=== PATIENT | female | born 1990 | race Caucasian/White ===

== ENCOUNTER 2017-10-18 15:47 | Emergency (ER) | payer OTHER ==
[~2017-10-18] VITALS: Ht 160 cm; Wt 100.0 kg
[~2017-10-18 15:47] MED LIST: ACET-1952 PO; CLIN300C9 PO; NAPR-58 PO
[2017-10-18] MEDS ORDERED: DEXAMETHASONE SOD PHOS 4 MG/ML 5 ML VIAL IM ONE (20:30)
[2017-10-18] MEDS ORDERED: HYPROMELLOSE 0.5% 15 ML OPHTHALMIC SOLUTION OD ONE (20:30)
[2017-10-18] MEDS ORDERED: AMOX TR/POT CLAV 875 MG/125 MG TABLET PO ONE (20:30)
[2017-10-18 20:44] VITALS: BP 115/80
== END 2017-10-18 20:53 | disposition home or self-care (01) ==
LOC: EMS 18:17
DX: R20.0 Anesthesia of skin (principal); J32.9 Chronic sinusitis, unspecified
CPT/HCPCS: 70450; 81025; 96372; 99284; J1100

== ENCOUNTER 2020-12-03 10:49 | Emergency (ER) | payer OTHER ==
[~2020-12-03] VITALS: Ht 160 cm; Wt 110.0 kg
[2020-12-03 11:14] LABS: APPEARANCE,URINE CLOUDY (CLEAR); BILIRUBIN,URINE NEGATIVE (NEGATIVE); GLUCOSE, URINE (UA) NEGATIVE (NEGATIVE); KETONES,URINE NEGATIVE (NEGATIVE); LEUKOCYTE ESTERASE ,URINE MODERATE (NEGATIVE); NITRATE,URINE NEGATIVE (NEGATIVE); OCCULT BLOOD,URINE MODERATE (NEGATIVE); PROTEIN,URINE SEE CONFIRM (NEGATIVE); UROBILINOGEN,URINE 0.2 mg/dL (<=1.0)
[2020-12-03 11:38] LABS: SULFOSALICYLIC ACID,URINE 2+ (Negative)
[2020-12-03 11:39] LABS: BACTERIA,URINE Moderate /HPF (None Seen); SQUAMOUS EPITHELIAL CELL,UR Few /LPF (None Seen)
[2020-12-03 12:24] VITALS: BP 137/94
[2020-12-03] MEDS ORDERED: PHENAZOPYRIDINE HCL 100 MG TABLET PO ONE (12:45)
== END 2020-12-03 12:52 | disposition home or self-care (01) ==
LOC: EMS 10:53
DX: N39.0 Urinary tract infection, site not specified (principal)
CPT/HCPCS: 81001; 81002; 84703; 87086; 99283